=== PATIENT | female | born 1935 | race Caucasian/White ===

== ENCOUNTER 2017-04-25 18:38 | Observation (INO) ==
--- NOTE | 2017-04-25 19:37 | Emergency Department Note ---
Disposition Clinical Impression: Internal derangement of left knee Disposition: Admitted As Inpatient Condition: Fair Referrals: Rufina Ang MD [Primary Care Provider] - Forms: ED Satisfaction Letter Time of Disposition: 22:08 Extremity Problem HPI - General Chief complaint: ED Extremity Problem,Nontraumatic Stated complaint: L knee pain Time Seen by Provider: 04/25/17 18:53 Source: patient Mode of arrival: wheelchair Limitations: no limitations Nursing Notes Reviewed: Yes Vital Signs Reviewed: Yes - History of Present Illness HPI Narrative: 82-year-old status post knee replacement back in December 2016 who says that she developed severe pain in her knee with significant swelling Pt Subjective Complaint: extremity pain Onset (ago): Just WOOLEN TESTER Consistency: constant Injury Location: left Pain Scale: 10 Quality: burning, aching Radiation: none Improves with: nothing Worsens with: weight bearing Associated symptoms: Reports: denies other symptoms - Related Data Home Medications Medication Instructions Recorded Confirmed Aspirin [Adult Low Dose Aspirin EC] 81 mg PO DAILY 04/19/15 04/15/17 Cyanocobalamin (B-12) [Vitamin B12] 1,000 mcg SQ QMONTH 04/19/15 04/15/17 Insulin Glargine [Lantus] 45 units SQ HS 04/19/15 04/15/17 Isosorbide MONOnitrate (24 HR) 60 mg PO DAILY 04/19/15 04/15/17 [Imdur] Omeprazole [PriLOSEC] 20 mg PO DAILY 04/19/15 04/15/17 Ranolazine [Ranexa] 500 mg PO BID 04/19/15 04/15/17 Simvastatin [Zocor] 40 mg PO HS 04/19/15 04/15/17 Spironolactone [Aldactone] 25 mg PO DAILY 04/19/15 04/15/17 Trazodone HCl 150 mg PO HS 04/19/15 04/15/17 carBAMazepine [Tegretol] 400 mg PO HS 04/19/15 04/15/17 glipiZIDE [Glucotrol] 5 mg PO BIDWM 04/19/15 04/15/17 Nitroglycerin 4.1 gm TL AD PRN 01/06/16 04/15/17 Torsemide 50 mg PO DAILY 12/16/16 04/15/17 Valsartan [Diovan] 80 mg PO DAILY 04/15/17 04/15/17 Previous Rx's Medication Instructions Recorded Levothyroxine [Synthroid] 100 mcg PO 0630 #90 tablet 09/09/16 Allergies Allergy/AdvReac Type Severity Reaction Status Date / Time No Known Allergies Allergy Verified 04/15/17 10:57 All systems ED: reviewed and negative except as stated. Constitutional: Denies: fever, chills, weakness, weight change Eyes: Denies: eye pain, eye discharge, vision change ENT ED: Denies: ear pain, throat pain, dental pain, hearing loss, epistaxis, congestion, dysphagia Cardiovascular: Denies: chest pain, palpitations, dyspnea on exertion, edema, syncope Respiratory: Denies: cough, dyspnea, wheezes, hemoptysis, stridor Gastrointestinal: Denies: abdominal pain, nausea, vomiting, diarrhea, constipation, hematemesis, melena, hematochezia Genitourinary: Denies: dysuria, frequency, hematuria, discharge Musculoskeletal: Reports: arthralgia. Denies: back pain, neck pain, myalgia Integumentary: Denies: rash, abrasion, lesions Neurological: Denies: headache, weakness, numbness, paresthesias, confusion, abnormal gait, vertigo Psychiatric: Denies: anxiety, depression, suicidal thoughts, homicidal thoughts , auditory hallucinations, visual hallucinations Endocrine: Denies: fatigue Hematological/Lymphatic: Denies: easy bleeding, easy bruising Allergic/Immunologic: Denies: facial swelling, urticaria Past Medical History - Past Medical History Medical history: Reports: arthritis, cancer, CHF, hyperlipidemia, hypertension, kidney stones, myocardial infarction, pulmonary embolus Surgical history: Reports: appendectomy, cancer surgery, cholecystectomy, coronary bypass (CABG), hysterectomy Psychiatric history: Reports: no psych history - Social History Smoking Status: Never smoker Smokeless Tobacco Status: No Alcohol use: Reports: none Drug use: Reports: none Physical Exam - General Limitations: no limitations General appearance: alert - Head Head exam: atraumatic, normocephalic, normal inspection - Eye Eye exam: Present: normal appearance - ENT ENT exam: normal exam, normal oropharynx, mucous membranes moist - Neck Neck exam: Present: normal inspection, full ROM, trachea midline - Chest Chest inspection: Present: normal inspection, symmetric chest wall rise - Respiratory Respiratory exam: Present: normal lung sounds bilaterally - Cardiovascular Cardiovascular exam: Present: regular rate, normal rhythm, normal heart sounds - Abdominal Exam Abdominal exam: Present: soft, Non-Tender. Absent: tenderness, distention, guarding, rebound, rigidity - Expanded Lower Extremity Exam Knee exam: Present: swelling, erythema Neurovascular/Tendon exam: Absent: motor deficit, sensory deficit, tendon deficit Gait: observed and normal - Back Exam Back exam: Present: normal inspection, full ROM. Absent: tenderness - Neurological Exam Neurological exam: Present: alert, oriented X3 - Psychiatric Psychiatric exam: Present: normal affect, normal mood - Skin Skin exam: Present: warm, dry, intact, normal color Course - Reevaluation(s) Reevaluation #1: 82-year-old with a pop in her knee has marked swelling is unable to ambulate we placed her in a knee immobilizer she could not ambulate. We will admit have a orthopedic surgery see her rule out internal derangement. Time: 22:04 - Consultations Consultation #1: Discussed with Dr. Cueva, he will see the patient. Time: 20:53 Consultation #2: Discussed with , admit Time: 22:04 Vital Signs Temperature 97.7 F 04/25/17 18:42 Pulse Rate 84 04/25/17 18:42 Respiratory Rate 18 04/25/17 18:42 Blood Pressure 191/73 04/25/17 18:42 O2 Sat by Pulse Oximetry 98 04/25/17 18:42 Temperature 97.7 F 04/25/17 18:42 Pulse Rate 84 04/25/17 18:42 Respiratory Rate 18 04/25/17 18:42 Blood Pressure 191/73 04/25/17 18:42 O2 Sat by Pulse Oximetry 98 04/25/17 18:42 Oxygen Delivery Oxygen Delivery Room Air Extremity Problem, Nontraumati - Lab Data Result diagrams: 04/25/17 20:52 04/25/17 20:52 Lab Results 04/25/17 04/25/17 04/25/17 Range/Units 20:52 20:52 20:52 WBC 6.5 (4.3-11.1) K/mcL RBC 3.62 L (3.82-4.97) M/mcL Hgb 11.1 L (11.5-15.4) g/dL Hct 35.0 L (35.3-44.9) % MCV 96.7 (83.0-100.0) fL MCH 30.7 (28.0-33.3) pg MCHC 31.7 (31.6-35.5) g/dL RDW 14.6 H (11.5-14.5) % Plt Count 180 (140-400) K/mcL MPV 9.8 (9.4-12.4) fL Immature Gran % 0.5 (0-4) % Seg Neutrophils % 67.6 % Lymphocytes % 18.5 % Monocytes % 9.2 % Eosinophils % 4.0 % Basophils % 0.2 % Neutrophils # 4.4 (1.6-8.9) K/mcL Lymphocytes # 1.2 (0.6-4.6) K/mcL Monocytes # 0.6 (0.0-1.3) K/mcL Eosinophils # 0.3 (0.0-0.6) K/mcL Basophils # 0.0 (0.0-0.2) K/mcL ESR 107 H (0-15) mm/hr Sodium 138 (136-145) mEq/L Potassium 4.1 (3.5-5.1) mEq/L Chloride 100 (98-107) mEq/L Carbon Dioxide 33 H (23-29) mEq/L BUN 27 H (8-23) mg/dL Creatinine 1.57 H (0.60-1.20) mg/dL Est GFR ( Amer) 38 L (> 60) Est GFR (Non-Af Amer) 32 L (> 60) BUN/Creatinine Ratio 17 (6-26) Glucose 129 H (70-105) mg/dL Calculated Osmolality 293 (280-300) Calcium 9.9 (8.6-10.3) mg/dL
[2017-04-25 21:03] LABS: Basophils % 0.2 %; Eosinophils # 0.3 K/mcL (0.0-0.6); Hemoglobin 11.1 g/dL (11.5-15.4); Immature Granulocytes % 0.5 % (0-4); Lymphocytes # 1.2 K/mcL (0.6-4.6); Lymphocytes % 18.5 %; Mean Corpuscular HGB Conc 31.7 g/dL (31.6-35.5); Mean Corpuscular Hemoglobin 30.7 pg (28.0-33.3); Mean Corpuscular Volume 96.7 fL (83.0-100.0); Mean Platelet Volume 9.8 fL (9.4-12.4); Monocytes # 0.6 K/mcL (0.0-1.3); Monocytes % 9.2 %; Neutrophils # 4.4 K/mcL (1.6-8.9); Platelet Count 180 K/mcL (140-400); Red Blood Count 3.62 M/mcL (3.82-4.97); Red Cell Distribution Width 14.6 % (11.5-14.5); Segmented Neutrophils % 67.6 %
[2017-04-25 21:19] LABS: Calcium 9.9 mg/dL (8.6-10.3); Potassium 4.1 mEq/L (3.5-5.1)
[2017-04-26] MEDS ORDERED: Acetaminophen 325 MG TABLET PO PRN (01:18)
[2017-04-26] MEDS ORDERED: Naloxone 0.4 MG/ML INJ IVP PRN (01:18)
[2017-04-26] MEDS ORDERED: *HR* HYDROcodone/Acet 5/325 mg TABLET PO PRN (01:18)
[2017-04-26] MEDS ORDERED: Dextrose Gel 15 GM/37.5 ML TUBE PO PRN ×2 (01:20)
[2017-04-26] MEDS ORDERED: D5% in Water 1,000 ML IVC PRN (01:20)
[2017-04-26] MEDS ORDERED: *HR* Dextrose 50 % in Water (Syg) 50 ML SYRINGE IVP PRN (01:20)
[2017-04-26] MEDS ORDERED: Nitroglycerin Spray 4.9 GM BOTTLE TL PRN (01:21)
[2017-04-26] MEDS ORDERED: Insulin DETEMIR 100 UNIT/ML X5UNITS SQ SCH (01:30)
--- NOTE | 2017-04-26 02:35 | Internal Med History&Physical ---
Date of Encounter: 04/26/17 Time of Encounter: 01:00 Assessment and Plan (1) Internal derangement of left knee Current visit: Yes Status: Acute Pain management as needed. Orthopedics consult. (2) CKD (chronic kidney disease), stage IV Current visit: No Status: Chronic Cr level is at baseline (3) Diabetes mellitus with neuropathy Current visit: No Status: Chronic Will cont basal and SS insulin. Qualifiers: Diabetes mellitus type: type 2 Diabetes mellitus termite control servicer insulin use: with termite control servicer use Qualified Code(s): E11.40 - Type 2 diabetes mellitus with diabetic neuropathy, unspecified; Z79.4 - intermodal dispatcher (current) use of insulin; Z79.4 - nursing home (current) use of insulin; Z79.4 - nursing home (current) use of insulin; Z79.4 - nursing home (current) use of insulin (4) HTN (hypertension) Current visit: No Status: Chronic Cont home medications. Qualifiers: Hypertension type: essential hypertension Qualified Code(s): I10 - Essential (primary) hypertension (5) History of renal cell cancer Current visit: No Status: Chronic Had surgery many yrs ago. (6) Hypothyroidism (acquired) Current visit: No Status: Chronic Cont home med synthroid (7) CAD (coronary artery disease) Current visit: Yes Status: Acute S/P CABG, stable, no chest pain, cont home medications. Qualifiers: Coronary Disease-Associated Artery/Lesion type: bypass graft [place] vs. transplanted heart: [place] heart Associated angina: without angina Qualified Code(s): I25.810 - Atherosclerosis of coronary artery bypass graft(s) without angina pectoris Internal Medicine - H&P: HPI Chief complaint: Left leg pain. Admitted From: Home Plans for Post Hospital Care: Home History of present illness: Ms. Maurer is a 82 year old female with PMH of DM, HTN, CAD s/p CABG, renal cancer s/p surgery with only one kidney left, present to ER for left leg pain started from today. Pt had TKR in last Dec. Today she found left knee pain, she cannot stand on left leg. Pt denies fever. Denies other symptoms. In ER, XR of left knee unremarkable. Orthopedics was called by ER, considering knee derangement, Pt was admitted for further management by orthopedics. I have discussed CODE STATUS with pt, she clearly told me she will not accept CPR but accept intubation if needed, DNRCCA placed. Past Med Surg Social Fam HX - Past Medical History Medical history: arthritis, cancer, CHF, diabetes, hyperlipidemia, hypertension , kidney stones, myocardial infarction, pulmonary embolus Psychiatric history: no psych history - Past Surgical History Surgical History: appendectomy, cancer surgery, cholecystectomy, coronary bypass (CABG), hysterectomy, knee replacement, orthopedic, other - Social History Smoking Status: Former smoker Smokeless Tobacco Status: No Alcohol use: none Drug use: none - Family History Father Hx Family Cardiac Disorders: Yes (MS) Hx Family Endocrine Disorder: Yes (DM) Hx Family Neurologic Disorders: Yes (CVA) Mother Hx Family Cardiac Disorders: Yes Hx Family Endocrine Disorder: Yes (DM) Hx Family Neurologic Disorders: Yes (CVA) Brother Living Status: Hx Family Cancer: Yes Internal Medicine - H&P: Meds Aspirin [Adult Low Dose Aspirin EC] 81 mg PO DAILY 04/19/15 [History] Cyanocobalamin (B-12) [Vitamin B12] 1,000 mcg SQ QMONTH 04/19/15 [History] Insulin Glargine [Lantus] 45 units SQ HS 04/19/15 [History] Isosorbide MONOnitrate (24 HR) [Imdur] 60 mg PO DAILY 04/19/15 [History] Omeprazole [PriLOSEC] 20 mg PO DAILY 04/19/15 [History] Ranolazine [Ranexa] 500 mg PO BID 04/19/15 [History] Simvastatin [Zocor] 40 mg PO HS 04/19/15 [History] Spironolactone [Aldactone] 25 mg PO DAILY 04/19/15 [History] Trazodone HCl 150 mg PO HS 04/19/15 [History] carBAMazepine [Tegretol] 400 mg PO HS 04/19/15 [History] glipiZIDE [Glucotrol] 5 mg PO BIDWM 04/19/15 [History] Nitroglycerin 4.1 gm TL AD PRN 01/06/16 [History] Levothyroxine [Synthroid] 100 mcg PO 0630 #90 tablet 09/09/16 [Rx] Torsemide 50 mg PO DAILY 12/16/16 [History] Valsartan [Diovan] 80 mg PO DAILY 04/15/17 [History] 3 Allergy/AdvReac Type Severity Reaction Status Date / Time No Known Allergies Allergy Verified 04/15/17 10:57 All Systems PM: A 10-system review of systems was performed and is negative for pertinent findings except as documented above in the HPI. - Constitutional Vitals: Temp Pulse Resp BP Pulse Ox 97.7 F 86 17 142/71 89 04/25/17 23:56 04/25/17 23:56 04/25/17 23:56 04/25/17 23:56 04/25/17 23:56 General appearance: Present: A&O X 3, no acute distress, answers questions appropriately - Head Head exam: Present: atraumatic, normocephalic - Eye Eye exam: Present: PERRL, conjuntiva pink, sclera anicteric Pupils: Present: PERRL - Neck Neck exam general surgery: Present: supple, trachea midline. Absent: lymphadenopathy - Respiratory Respiratory exam: Present: CTAB. Absent: accessory muscle use, rales, rhonchi, wheezes - Cardiovascular Cardiovascular exam: Present: RRR, +S1, +S2. Absent: diastolic murmur, gallop, rubs, systolic murmur - GI/Abdominal GI/Abdominal exam: Present: normal bowel sounds, soft, no peritoneal signs. Absent: distended, tenderness - Extremities Exam Extremities exam: Present: warm, radial pulses palpable and symmetrical. Absent : calf tenderness, cyanotic, pedal edema Additional comments: Left knee ROM limited due to pain, no joint swelling/redness/warmth. - Neurological Exam Neurological exam: Present: CN II-XII intact, oriented X3, no focal deficits. Absent: pronater drift, facial droop, speech deficit - Skin Skin exam: Present: dry, intact Internal Med - H&P Results - Labs CBC & Chem 7: 04/25/17 20:52 04/25/17 20:52
[2017-04-26 04:10] LABS: Basophils % 0.3 %; Eosinophils # 0.3 K/mcL (0.0-0.6); Eosinophils % 4.2 %; Hematocrit 32.8 % (35.3-44.9); Hemoglobin 10.4 g/dL (11.5-15.4); Immature Granulocytes % 0.3 % (0-4); Lymphocytes # 1.2 K/mcL (0.6-4.6); Lymphocytes % 19.2 %; Mean Corpuscular HGB Conc 31.7 g/dL (31.6-35.5); Mean Corpuscular Hemoglobin 30.3 pg (28.0-33.3); Mean Corpuscular Volume 95.6 fL (83.0-100.0); Mean Platelet Volume 10.3 fL (9.4-12.4); Monocytes # 0.6 K/mcL (0.0-1.3); Monocytes % 9.4 %; Neutrophils # 4.3 K/mcL (1.6-8.9); Platelet Count 167 K/mcL (140-400); Red Blood Count 3.43 M/mcL (3.82-4.97); Red Cell Distribution Width 14.8 % (11.5-14.5); Segmented Neutrophils % 66.6 %
[2017-04-26 04:24] LABS: Calcium 9.2 mg/dL (8.6-10.3); Magnesium 1.8 mg/dL (1.6-2.6); Potassium 3.9 mEq/L (3.5-5.1)
[2017-04-26] MEDS ORDERED: *HR* Heparin 5,000 UNIT/ML VIAL SQ SCH (06:00)
--- NOTE | 2017-04-26 06:42 | Orthopedic Consult Note ---
Date of Encounter: 04/26/17 Time of Encounter: 06:41 History of Present Illness HPI: Ms. Maurer is a 82 year old female Patient presented with increased pain in left knee after a pop. Denies any other trauma. Patient is able to do a straight leg raise Minimal swelling Incision well-healed No erythema Motion intact X-rays reviewed and compared with old x-rays slight patella baja otherwise implants well aligned and well fixed. Recommend brace which we will fit her today discharged today weightbearing as tolerated Past Med Surg Social Fam HX - Past Medical History Medical history: arthritis, cancer, CHF, diabetes, hyperlipidemia, hypertension , kidney stones, myocardial infarction, pulmonary embolus Psychiatric history: no psych history - Past Surgical History Surgical History: appendectomy, cancer surgery, cholecystectomy, coronary bypass (CABG), hysterectomy, knee replacement, orthopedic, other - Social History Smoking Status: Former smoker Smokeless Tobacco Status: No Alcohol use: none Drug use: none - Family History Father Hx Family Cardiac Disorders: Yes (RI) Hx Family Endocrine Disorder: Yes (DM) Hx Family Neurologic Disorders: Yes (CVA) Mother Hx Family Cardiac Disorders: Yes Hx Family Endocrine Disorder: Yes (DM) Hx Family Neurologic Disorders: Yes (CVA) Brother Living Status: Hx Family Cancer: Yes Medications and Allergies Aspirin [Adult Low Dose Aspirin EC] 81 mg PO DAILY 04/19/15 [History] Cyanocobalamin (B-12) [Vitamin B12] 1,000 mcg SQ QMONTH 04/19/15 [History] Insulin Glargine [Lantus] 45 units SQ HS 04/19/15 [History] Isosorbide MONOnitrate (24 HR) [Imdur] 60 mg PO DAILY 04/19/15 [History] Omeprazole [PriLOSEC] 20 mg PO DAILY 04/19/15 [History] Ranolazine [Ranexa] 500 mg PO BID 04/19/15 [History] Simvastatin [Zocor] 40 mg PO HS 04/19/15 [History] Spironolactone [Aldactone] 25 mg PO DAILY 04/19/15 [History] Trazodone HCl 150 mg PO HS 04/19/15 [History] carBAMazepine [Tegretol] 400 mg PO HS 04/19/15 [History] glipiZIDE [Glucotrol] 5 mg PO BIDWM 04/19/15 [History] Nitroglycerin 4.1 gm TL AD PRN 01/06/16 [History] Levothyroxine [Synthroid] 100 mcg PO 0630 #90 tablet 09/09/16 [Rx] Torsemide 50 mg PO DAILY 12/16/16 [History] Valsartan [Diovan] 80 mg PO DAILY 04/15/17 [History] 3 Allergy/AdvReac Type Severity Reaction Status Date / Time No Known Allergies Allergy Verified 04/15/17 10:57 All Systems Reviewed: A 10-system review of systems was performed and is negative for pertinent findings except as documented above in the HPI. Physical Exam - Constitutional Vitals: Temp Pulse Resp BP Pulse Ox 97.7 F 86 17 142/71 89 04/25/17 23:56 04/25/17 23:56 04/25/17 23:56 04/25/17 23:56 04/25/17 23:56 Results - Labs Result Diagrams: 04/26/17 03:33 04/26/17 03:33 Labs: Abnormal lab results RBC 3.43 M/mcL (3.82-4.97) L 04/26/17 03:33 Hgb 10.4 g/dL (11.5-15.4) L 04/26/17 03:33 Hct 32.8 % (35.3-44.9) L 04/26/17 03:33 RDW 14.8 % (11.5-14.5) H 04/26/17 03:33 ESR 107 mm/hr (0-15) H 04/25/17 20:52 Carbon Dioxide 30 mEq/L (23-29) H 04/26/17 03:33 Creatinine 1.37 mg/dL (0.60-1.20) H 04/26/17 03:33 Est GFR ( Amer) 45 (> 60) L 04/26/17 03:33 Est GFR (Non-Af Amer) 37 (> 60) L 04/26/17 03:33 Glucose 171 mg/dL (70-105) H 04/26/17 03:33 POC Glucose 113 (58-89) H 04/25/17 23:30 H & H 04/26/17 Range/Units 03:33 Hgb 10.4 L (11.5-15.4) g/dL Hct 32.8 L (35.3-44.9) % All other labs normal. Consult Discharge Plan - Plan Referrals: Rufina Ang MD [Primary Care Provider] -
[2017-04-26] MEDS ORDERED: Spironolactone 25 MG TABLET PO SCH (09:00)
[2017-04-26] MEDS ORDERED: Aspirin Enteric Coated 81 MG Tablet PO SCH (09:00)
[2017-04-26] MEDS ORDERED: Cyanocobalamin (B-12) 1,000 MCG/ML VIAL SQ SCH (09:00)
[2017-04-26] MEDS ORDERED: Ranolazine 500 MG TAB.ER.12H PO SCH (09:00)
[2017-04-26] MEDS ORDERED: Isosorbide MONOnitrate (24 HR) 60 MG TAB.ER.24H PO SCH (09:00)
[2017-04-26] MEDS ORDERED: Valsartan 80 MG TABLET PO SCH (09:00)
[2017-04-26] MEDS ORDERED: Torsemide 20 MG TABLET PO SCH (09:00)
[2017-04-26] MEDS: Insulin LISPRO 300 UNITS/3 ML VIAL SQ SCH ×3 (09:09→17:17)
--- NOTE | 2017-04-26 17:09 | Event Note ---
Date of Encounter: 04/26/17 Time of Encounter: 17:08 1) Internal derangement of left knee Current visit: Yes Status: Acute Evaluated by Ortho who recommended brace for stabilization. Bilateral lower extremity Dopplers pending. Discharge home if negative for DVT. (2) CKD (chronic kidney disease), stage IV Current visit: No Status: Chronic Cr level is at baseline (3) Diabetes mellitus with neuropathy Current visit: No Status: Chronic Will cont basal and SS insulin. Qualifiers: Diabetes mellitus type: type 2 Diabetes mellitus terminal makeup operator insulin use: with chcf use Qualified Code(s): E11.40 - Type 2 diabetes mellitus with diabetic neuropathy, unspecified; Z79.4 - [facility] (current) use of insulin; Z79.4 - computer terminal operator (current) use of insulin; Z79.4 - [facility] (current) use of insulin; Z79.4 - computer terminal operator (current) use of insulin (4) HTN (hypertension) Current visit: No Status: Chronic Cont home medications. Qualifiers: Hypertension type: essential hypertension Qualified Code(s): I10 - Essential (primary) hypertension (5) History of renal cell cancer Current visit: No Status: Chronic Had surgery many yrs ago. (6) Hypothyroidism (acquired) Current visit: No Status: Chronic Cont home med synthroid (7) CAD (coronary artery disease) Current visit: Yes Status: Acute S/P CABG, stable, no chest pain, cont home medications. Qualifiers: Coronary Disease-Associated Artery/Lesion type: bypass graft [place] vs. transplanted heart: [place] heart Associated angina: without angina Qualified Code(s): I25.810 - Atherosclerosis of coronary artery bypass graft(s) without angina pectoris
[2017-04-26 17:13] VITALS: BP 138/76
[2017-04-26] MEDS ORDERED: Insulin LISPRO 300 UNITS/3 ML VIAL SQ SCH (21:00)
[2017-04-26] MEDS ORDERED: carBAMazepine 200 MG TABLET PO SCH (21:00)
[2017-04-26] MEDS ORDERED: traZODone 50 MG TABLET PO SCH (21:00)
--- NOTE | 2017-04-29 07:44 | Discharge Summary ---
Date of Encounter: 04/26/17 Time of Encounter: 19:00 - Discharge Diagnosis (1) Internal derangement of left knee Priority: Primary Status: Acute Comments: s/p left TKR 12/2016. Now with severe left leg pain. Left knee x-ray non-acute. Bilateral lower extremity dopplers negative for DVT. Possible derangement of left knee. Evaluated by Ortho who noted implants well aligned and well fixed. She was fitted with left knee brace and discharged home with outpatient follow- up (2) CAD (coronary artery disease) Priority: Secondary Status: Chronic Comments: S/P CABG, stable, no chest pain, cont home medications. Qualifiers: Coronary Disease-Associated Artery/Lesion type: bypass graft [place] vs. transplanted heart: [place] heart Associated angina: without angina Qualified Code(s): I25.810 - Atherosclerosis of coronary artery bypass graft(s) without angina pectoris (3) CKD (chronic kidney disease), stage IV Priority: Secondary Status: Chronic Comments: per hx. Renal function at baseline (4) History of renal cell cancer Priority: Secondary Status: Chronic Comments: per hx. S/p remote surgery (5) HTN (hypertension) Priority: Secondary Status: Chronic Comments: per hx. BP controlled. Cont home BP medications Qualifiers: Hypertension type: essential hypertension Qualified Code(s): I10 - Essential (primary) hypertension (6) Hypothyroidism (acquired) Priority: Secondary Status: Chronic Comments: per hx. Cont home levothyroxine Hospital course: See assessment and plan for hospital course Discharge discussed with: patient - Time Spent with Patient Total time spent providing and/or coordinating discharge services: Less than 30 minutes - Discharge Medications Home Medications: Aspirin [Adult Low Dose Aspirin EC] 81 mg PO DAILY 04/19/15 [History] Cyanocobalamin (B-12) [Vitamin B12] 1,000 mcg SQ QMONTH 04/19/15 [History] Insulin Glargine [Lantus] 60 units SQ HS 04/19/15 [History] Isosorbide MONOnitrate (24 HR) [Imdur] 60 mg PO DAILY 04/19/15 [History] Omeprazole [PriLOSEC] 20 mg PO DAILY 04/19/15 [History] Ranolazine [Ranexa] 500 mg PO BID 04/19/15 [History] Simvastatin [Zocor] 40 mg PO HS 04/19/15 [History] Spironolactone [Aldactone] 25 mg PO DAILY 04/19/15 [History] Trazodone HCl 150 mg PO HS 04/19/15 [History] carBAMazepine [Tegretol] 400 mg PO HS 04/19/15 [History] glipiZIDE [Glucotrol] 5 mg PO BIDWM 04/19/15 [History] Nitroglycerin 4.1 gm TL AD PRN 01/06/16 [History] Levothyroxine [Synthroid] 100 mcg PO 0630 #90 tablet 09/09/16 [Rx] Torsemide 50 mg PO DAILY 12/16/16 [History] Valsartan [Diovan] 80 mg PO DAILY 04/15/17 [History] Allergies/Adverse Reactions: 3 Allergy/AdvReac Type Severity Reaction Status Date / Time No Known Allergies Allergy Verified 04/15/17 10:57 Date of admission: 04/25/17 22:29 Primary care physician: Rufina Ang MD Discharging clinician: Naida Coon Anticipated date of discharge: 04/26/17 - Constitutional Vitals: Temp Pulse Resp BP Pulse Ox 98.1 F 84 16 138/76 95 04/26/17 14:00 04/26/17 14:00 04/26/17 14:00 04/26/17 14:00 04/26/17 14:00 General appearance: Present: A&O X 3, no acute distress, answers questions appropriately - Head Head exam: Present: atraumatic, normocephalic - Eye Eye exam: Present: PERRL, conjuntiva pink, sclera anicteric Pupils: Present: PERRL - Neck Neck exam general surgery: Present: supple, trachea midline. Absent: lymphadenopathy - Respiratory Respiratory exam: Present: CTAB. Absent: accessory muscle use, rales, rhonchi, wheezes - Cardiovascular Cardiovascular exam: Present: RRR, +S1, +S2. Absent: diastolic murmur, gallop, rubs, systolic murmur - GI/Abdominal GI/Abdominal exam: Present: normal bowel sounds, soft, no peritoneal signs. Absent: distended, tenderness - Extremities Exam Extremities exam: Present: warm, radial pulses palpable and symmetrical. Absent : calf tenderness, cyanotic, pedal edema - Neurological Exam Neurological exam: Present: CN II-XII intact, oriented X3, no focal deficits. Absent: pronater drift, facial droop, speech deficit - Skin Skin exam: Present: dry, intact - Patient Status Disposition: Home, Self-Care Condition: Fair - Discharge Instructions Follow Up With: Rufina Ang MD [Primary Care Provider] - (MAKE AN APPOINTMENT 1-2 WEEKS ) Additional Instructions: WEAR BRACE TO LEFT KNEE AT ALL TIMES. WEIGHT BEARING TOLERATED. USE WALKER FOR AMBULATION. CALL 911, THE DOCTOR'S OFFICE, OR GO TO THE NEAREST EMERGENCY ROOM IF SYMPTOMS WORSEN OR RETURN WELL WITH ANY CONCERNS. - Diet and Activity Activity: increase activity as tolerated Diet: advance to your usual diet
== END 2017-04-26 18:44 | disposition home or self-care (01) ==
LOC: 3NENU 18:38 → EMEROO 18:38 → 3NENU 22:47
PROVIDERS: ADMIT Internal Medicine; ATTEND Hospitalist

== ENCOUNTER 2018-11-24 07:21 | Inpatient (IN) ==
[~2018-11-24 07:21] MED LIST: Heparin 1,000 UNITS/500 mL 500 ML ONE
--- NOTE | 2018-11-24 07:38 | History & Physical Report ---
Date of Encounter: 11/24/18 Time of Encounter: 07:35 24 Hour HP Update - Instructions Instructions: If the History and Physical is less than 30 days old and was completed prior to A.M. admission and or procedure and has NOT been updated on calendar day of procedure please complete this update prior to performing procedure. - Update Patient reports changes in Medical Condition: No Changes in examination, assessment, or condition: No Changes in Medication: No Preop tests/diagnostics Reviewed: Yes Surgery Remains Indicated: Yes Consent for Planned Operative Procedure(s) Verified: Yes - Pre-Operative Checklist Preoperative Checklist Indicated: Yes Prophylactic Antibiotic Ordered: Yes (vancomycin due to MRSA risk) Home Medications Include Beta Jluis: No Beta Jluis Taken Today (Day of Surgery): No Beta Jluis Taken Yesterday (Day Prior to Surgery): No Is VTE Prophylaxis Indicated?: Yes
--- NOTE | 2018-11-24 08:09 | Anesthesia Evaluation PreOp ---
Date of Encounter: 11/24/18 Time of Encounter: 08:08 - Past History Planned Operation: left fem-pop BPG Cardiac History: PR, HTN, Hyperlipidemia, Cardiac Surgery (CABG 2001 after PR, 3 vessel), Other (CAD, PAD) Pulmonary History: Former smoker (quit 2001), Other (hx tonsillar cancer 2012, S/P tonsillectomy and XRT) Other Medical History: Renal (CKD 4, renal cell cancer), Diabetes Type II, Thyroid, Other (uterine and throat cancer) Anesthesia History: No Prior Anesthetic Complications, Past Anesthesia (JILLIAN, nephrectomy, ankle sx, cervical fusion, left tka, throat sx (tonsils)) Alcohol Use: none Drug use: none Medications and Allergies Cyanocobalamin (B-12) [Vitamin B12] 1,000 mcg SQ QMONTH 04/19/15 [History] GlipiZIDE [Glucotrol] 5 mg PO BIDWM 04/19/15 [History] Insulin Glargine [Lantus] 30 units SQ HS 04/19/15 [History] Isosorbide MONOnitrate (24 HR) [Imdur] 60 mg PO DAILY 04/19/15 [History] Omeprazole [PriLOSEC] 20 mg PO DAILY 04/19/15 [History] Ranolazine [Ranexa] 500 mg PO BID 04/19/15 [History] Spironolactone [Aldactone] 25 mg PO DAILY 04/19/15 [History] Trazodone HCl 150 mg PO HS 04/19/15 [History] Nitroglycerin 4.1 gm TL AD PRN 01/06/16 [History] HydrOXYzine [Atarax] 10 mg PO QID 07/01/17 [History] Levothyroxine [Synthroid] 100 mcg PO 0630 07/01/17 [History] diazePAM [Valium] 5 mg PO DAILY 07/01/17 [History] Allopurinol [Zyloprim] 300 mg PO DAILY 10/12/18 [History] Amlodipine Besylate 5 mg PO DAILY 10/12/18 [History] Atorvastatin Calcium [Lipitor] 20 mg PO HS 10/12/18 [History] Cholecalciferol (Vitamin D3) [Vitamin D3] 500 unit PO DAILY 10/12/18 [History] Docusate Sodium [Dulcolax Stool Softener] 100 mg PO DAILY PRN 10/12/18 [History] GlipiZIDE [Glipizide Xl] 5 mg PO BID 10/12/18 [History] Multivitamin with Folic Acid [Gnp One Daily Essential Tablet] 400 mcg PO DAILY 10/12/18 [History] Pyridoxine HCl [Vitamin B-6] 50 mg PO DAILY 10/12/18 [History] Torsemide 100 mg PO DAILY 10/12/18 [History] Valsartan [Diovan] 40 mg PO DAILY 10/12/18 [History] carBAMazepine [Tegretol] 200 mg PO BID 10/12/18 [History] Allergy/AdvReac Type Severity Reaction Status Date / Time No Known Allergies Allergy Verified 06/29/17 15:56 - Meds/Allergy Pre-op Review Medications Reviewed: Yes Allergies Reviewed: Yes Beta Blockers on Current Med List: No Anesthesia Results - Labs Selected Entries 11/24/18 07:55 Temperature 97.8 F Pulse Rate 78 Respiratory Rate 18 Blood Pressure 138/66 O2 Sat by Pulse Oximetry 97 Laboratory Tests 11/16/18 11/16/18 11/16/18 11:23 11:23 11:23 Hgb 11.9 Hct 37.3 Plt Count 169 PT 11.4 INR 1.0 APTT 31.3 Sodium 136 Potassium 4.1 BUN 39 H Creatinine 2.18 H - Imaging Additional studies: studies at outside institution per Dr Heath reports show negative stress test for ischemia and EF>70% Anesthesia Exam Selected Entries 11/24/18 08:19 Temperature 97.8 F Pulse Rate 78 Respiratory Rate 18 Blood Pressure 138/66 O2 Sat by Pulse Oximetry 97 Weight: 87kg NPO (# of Hours): 8 - HEENT Pupil (Motor): EOMI Mallampati: II Teeth: Edentulous Oral Opening: Greater than 3 - JOURNEYMAN MOLDER LOC: Oriented JOURNEYMAN MOLDER Motor: Normal RUE, Normal LUE, Normal RLE, Normal LLE, Normal Face JOURNEYMAN MOLDER Sensory: Normal: RUE, LUE, RLE, LLE, Face - Cardiac Rhythm: Regular Murmur: None - Pulmonary Breath Sounds: bilateral Clear Respiratory Effort: Symmetrical - Additional Findings limited ROM c-spine, Anesthesia Assess/Plan ASA Score: 4 Level of consciousness: Cooperative, Oriented Anesthetic Plan: General Monitoring Plan: Standard Monitors, A-Line Recovery Plan: PACU (agrees to GA, hira and blood if needed)
[2018-11-24] MEDS ORDERED: CeFAZolin Syr 2,000MG/20 ML 2,000 MG/20 ML SYRINGE IVPB ONE (08:12)
[2018-11-24] MEDS ORDERED: *HR* FentaNYL (PF) 100 MCG/2 ML VIAL ONE (08:12)
[2018-11-24] MEDS ORDERED: *HR* Propofol 200 MG/20 ML VIAL IVP ONE (08:12)
[2018-11-24] MEDS ORDERED: Albuterol 2.5 MG/3 ML NEBULIZER IH ONE (08:12)
[2018-11-24] MEDS ORDERED: Lidocaine -MPF 2% 2 ML VIAL ONE (08:14)
[2018-11-24] MEDS ORDERED: *HR* Succinylcholine 200 MG/10 ML VIAL IVP ONE (08:14)
[2018-11-24] MEDS ORDERED: Lidocaine HCL 4 ML Topical Solution (Laryng-O-Jet Kit Sterile Pak) TP ONE (08:14)
[2018-11-24] MEDS ORDERED: Ringers Solution, Lactated 1,000 ML IVC SCH ×2 (08:15→08:30)
[2018-11-24] MEDS ORDERED: Acetaminophen IV 1,000 MG/100 ML INFUS..BTL IVPB ONE (08:29)
[2018-11-24] MEDS ORDERED: *HR* HYDROmorphone (PF) 1 MG/ML SYRINGE IVP PRN (08:29)
[2018-11-24] MEDS ORDERED: *HR* Promethazine 25 MG/ML VIAL IVP PRN ×2 (08:29→14:40)
[2018-11-24] MEDS ORDERED: *HR* OxyCODONE Immed Rel 5 MG TABLET PO PRN ×2 (08:29→14:40)
[2018-11-24] MEDS ORDERED: Heparin 1,000 UNITS/500 mL 500 ML ONE ×2 (08:32→08:43)
[2018-11-24] MEDS ORDERED: *HR* Midazolam HCl 2 MG/2 ML VIAL ONE (08:40)
[2018-11-24] MEDS ORDERED: Acetaminophen IV 1,000 MG/100 ML INFUS..BTL ONE (08:47)
[2018-11-24] MEDS ORDERED: Vancomycin 1,000 MG, Sodium Chloride IRRigation 1,000 ML IR ONE (08:55)
[2018-11-24] MEDS ORDERED: Lidocaine -MPF 4% 5 ML AMPUL ONE (09:14)
[2018-11-24] MEDS ORDERED: EPHEDrine 50 MG/ML VIAL ONE (09:32)
[2018-11-24] MEDS ORDERED: *HR* Phenylephrine 10 MG/ML VIAL ONE (09:32)
[2018-11-24] MEDS ORDERED: Ondansetron 4 MG/2 ML VIAL ONE (09:41)
[2018-11-24] MEDS ORDERED: Dexamethasone 4 MG/ML VIAL ONE (09:41)
[2018-11-24] MEDS ORDERED: *HR* Rocuronium Bromide 50 MG/5 ML VIAL ONE ×2 (09:58→11:44)
[2018-11-24] MEDS ORDERED: Calcium Gluconate 1,000 MG/10 ML VIAL ONE (10:48)
[2018-11-24] MEDS ORDERED: *HR* Heparin 5,000 UNIT/ML VIAL ONE (10:58)
[2018-11-24] MEDS ORDERED: Protamine Sulfate 50 MG/5 ML VIAL IVP ONE (12:08)
--- NOTE | 2018-11-24 13:34 | Operative Note ---
Date of procedure: 11/24/18 Pre-op diagnosis: Peripheral vascular disease with disabling claudication Post-op diagnosis: same Procedure: 1. Reoperative left common femoral to below-knee popliteal artery bypass graft with 6 mm ring reinforced PTFE Distaflo mini-cuff graft. 2. Left common femoral endarterectomy. 3. Left popliteal endarterectomy. Complications: None Anesthesia: MAC, local Surgeon: Willian Heath Was there an digital assistant present: Yes Senior Software Quality Analyst: Miguel A De La Cruz Estimated blood loss (cc): 100 Specimen: Left lower extremity thrombus and plaque Condition: stable Disposition: PACU Procedure in Detail: Indications: The patient is an 83-year-old female with a history of peripheral vascular disease, hypertension, diabetes, coronary artery disease and hyperlipidemia presenting undergone bilateral femoral to popliteal artery bypass grafts. She presented to clinic with severe disabling claudication was found have a graft occlusion on the left. Revascularization was recommended to alleviate her symptoms reduce her risk of limb loss. Procedure: The patient was identified in the preoperative area. The risks, benefits, and alternatives of the procedure were discussed. All questions were answered. The patient was taken to the operating room and placed in supine position on the operating room table. After the induction of general endotracheal anesthesia, he was cleaned and draped in normal sterile fashion. An incision was made through her previous longitudinal left groin scar sharply. Hemostasis was obtained with electrocautery. Through a process of blunt, sharp, and electrocautery dissection, the common, deep and superficial femoral arteries as well as the proximal anastomosis of the prior bypass graft were dissected circumferentially and surrounded with vessel loops. An incision was made through the previous scar in her left medial calf sharply. Hemostasis was obtained with electrocautery. Through a process of blunt, sharp, and electrocautery dissection, the left below-knee popliteal artery, proximal anterior tibial artery and proximal tibial peroneal trunk artery as well as the distal anastomosis of her previous bypass graft was dissected proximally and distally and surrounded with vessel loops. A graft was tunneled between the popliteal and femoral incisions. The patient received 5000 units of heparin intravenously. After waiting adequate time for the heparin to circulate, the popliteal vessels were occluded and a longitudinal arteriotomy was made in the popliteal artery below the previous anastomosis. Dense severely occlusive plaque was identified. Using a dental freer, an endarterectomy is performed. The distal endpoint was inspected and no elevated flaps was noted. The distal end of the graft was sutured in place with a running 6-0 Prolene. The sutures were not tied.. Heparinized saline was infused into the lumen. Tension was applied to the femoral vessel loops. An arteriotomy was made in the occluded previous bypass graft and extended into the left common femoral artery. Significant thrombus and intimal hyperplasia was encountered within the graft and at the anastomosis with the common femoral artery. Using a dental freer the thrombus and plaque were removed and sent to pathology. No elevated flaps were noted in the lumen. The new bypass graft was cut to fit the arteriotomy. The graft was anastamosed with a running 6-0 Prolene. The vessels were flushed through the graft and heparin was infused into the lumen. The graft was clamped with an atraumatic clamp. Thrombin and gelfoam were used at the proximal anastamosis. The distal arterial anastomosis suture line was completed. Prior to completing the closure, the popliteal vessels were flushed and reoccluded. Heparinized saline was infused into the lumen. The anastamosis was tied and then flow was restored. Polyphasic signals were noted distal to the distal anastomosis as well as at the posterior tibial artery. Wounds were irrigated with antibiotic-containing saline. Thrombin and gelfoam were used to aid in hemostasis. Platelet rich and platelet poor plasma were infused into the wounds. Meticulous hemostasis was obtained throughout the wound with electrocautery. Wounds were reapproximated with layers of 2-0 and 3-0 Vicryl. Skin was reapproximated with 3-0 Monocryl. Sterile dressing was applied. The patient was extubated and taken to recovery room in stable condition.
--- NOTE | 2018-11-24 14:15 | Anesthesia Evaluation Post Op ---
Date of Encounter: 11/24/18 Time of Encounter: 14:14 - Vital Signs Vital Signs: Selected Entries 11/24/18 14:01 Temperature 97.8 F Pulse Rate 67 Respiratory Rate 12 Blood Pressure 131/59 O2 Sat by Pulse Oximetry 100 - Lungs Lungs: Clear Ascult./Percussion - Airway Airway: Non-obstructed - Cardiovascular Regular Rate - Mental Status Mental Status: Alert & Oriented, Answers Appropriately - Pain Pain Scale: 0 Pain Scale used: Numeric (1 - 10) - Nausea Vomiting Nausea Vomiting: Not Present - Hydration Hydration: Ice chips, [place] catheter - Discharge PostOp Status: Transfer Patient to floor
[2018-11-24] MEDS ORDERED: *HR* Labetalol 20 MG/4 ML SYRINGE IVP PRN (14:40)
[2018-11-24] MEDS ORDERED: Cyanocobalamin (B-12) 1,000 MCG/ML VIAL SQ SCH (14:40)
[2018-11-24] MEDS ORDERED: D5% in Water 1,000 ML IVC PRN (14:40)
[2018-11-24] MEDS ORDERED: Acetaminophen 325 MG TABLET PO PRN (14:40)
[2018-11-24] MEDS ORDERED: Dextrose Gel 15 GM/37.5 ML TUBE PO PRN ×2 (14:40)
[2018-11-24] MEDS ORDERED: Naloxone 0.4 MG/ML INJ IVP PRN (14:40)
[2018-11-24] MEDS ORDERED: *HR* Dextrose 50 % in Water (Syg) 50 ML SYRINGE IVP PRN (14:40)
[2018-11-24] MEDS ORDERED: *HR* HYDROcodone/Acet 5/325 mg TABLET PO PRN (14:40)
[2018-11-24] MEDS ORDERED: 0.9 % Sodium Chloride 1,000 ML IVC SCH (14:40)
[2018-11-24] MEDS ORDERED: Nitroglycerin Spray 4.9 GM BOTTLE SL PRN (14:40)
--- NOTE | 2018-11-24 14:42 | Operative Note ---
Date of procedure: 11/24/18 Pre-op diagnosis: Lifestyle limiting left lower extremity claudication Post-op diagnosis: same Procedure: Redo left femoral to below the knee popliteal artery bypass graft with 6 mm PTFE Distaflo Left below-knee popliteal artery endarterectomy Left common femoral artery endarterectomy Complications: None Anesthesia: GETA Surgeon: Willian Heath Co-Surgeon: Miguel A De La Cruz Was there an tmd teacher assistant present: No Estimated blood loss (cc): 100 Specimen: Left lower extremity thrombus and atherosclerotic plaque Condition: stable Disposition: PACU Procedure in Detail: History This patient is an 83-year-old white female with lifestyle limiting claudication. She has had multiple interventions for the left lower extremity. She is status post a previous femoral to below-knee popliteal artery bypass graft with synthetic material. She is status post multiple stents placed in the left superficial femoral artery. Both of these interventions have thrombosed. Patient is also status post left total knee replacement. An Heron Ramm was performed which demonstrated the occlusion and the lesion was not amenable to endovascular therapy and so the patient now comes for direct bypass grafting again. Procedure After informed consent was obtained the patient was taken to the operating room. General endotracheal anesthesia was established. The left lower extremity was sterilely prepped and draped. A timeout protocol was observed. A 2 team surgical approach was used for this patient. This was performed due to the patient's multiple comorbidities. Also to allow for complex decision-making in to minimize complications associated with prolonged anesthesia and blood loss. The left groin and left below the knee popliteal areas were explored through previous surgical incisions. This of course led to significant encounter with scar tissue in inflammatory changes. After tedious dissection both locations the [place]ongo vessel as well as the synthetic graft were identified and controlled. A subsartorial tunnel was then created. 5000 units of heparin were administered intravenously. After 3 minute delay the old knee popliteal artery was clamped and then opened with 11 blade knife and Sims scissors. This revealed a significant amount of thick atherosclerotic material. In order to secure an appropriate lumen this required a formal endarterectomy. This was performed with a septal dissector. The dissection was carried proximally to the level of the previous femoral popliteal bypass graft as well as distally to the level of the bifurcation into the anterior tibial and tibial peroneal trunk. Backbleeding was established. The area was copiously irrigated with heparinized saline. In a similar fashion the left groin area was exposed. The arterial exposure was begun by opening the proximal portion of the graft and continuing the arteriotomy onto the [place] common femoral artery. Plaque and thrombus was encountered and then this was removed using a [place] elevator. This area was also flushed with a copious amount of heparinized saline. The bypass graft wasn't performed. The distal anastomosis was initiated first in order to secure an appropriate length. The heel of the graft was sewn into pos ition and the graft was then gently stretched to be appropriate for no tension anastomosis both proximally and distally. The proximal anastomosis and distal anastomosis were then carried out simultaneously. After appropriate backbleeding and flushing the graft was opened. Pulsatile flow was then achieved into the below the knee popliteal artery and tibial vessels. Doppler signals identified over the dorsalis pedis artery. The wounds were then irrigated and hemostasis achieved. The wounds were closed in layers using absorbable suture. Dry sterile dressings were applied. There were no intraoperative complications. The patient tolerated the procedure well. She was taken from the operating room to the recovery room in stable condition.
[2018-11-24] MEDS: Insulin LISPRO 300 UNITS/3 ML VIAL SQ SCH (16:54)
[2018-11-24] MEDS: *HR* Metoprolol 5 MG/5 ML VIAL IVP SCH ×2 (16:57→23:59)
[2018-11-24] MEDS ORDERED: Cholecalciferol (D-3) 1,000 UNIT (25MCG) TABLET PO SCH (18:00)
[2018-11-24] MEDS ORDERED: Torsemide 20 MG TABLET PO SCH (18:00)
[2018-11-24] MEDS ORDERED: Folic Acid 1 MG TABLET PO SCH (18:00)
[2018-11-24] MEDS ORDERED: Pyridoxine (B-6) 50 MG TABLET PO SCH (18:00)
[2018-11-24] MEDS ORDERED: Isosorbide MONOnitrate (24 HR) 60 MG TAB.ER.24H PO SCH (18:00)
[2018-11-24] MEDS ORDERED: Insulin LISPRO 300 UNITS/3 ML VIAL SQ SCH (21:00)
[2018-11-24] MEDS ORDERED: carBAMazepine 200 MG TABLET PO SCH (21:00)
[2018-11-24] MEDS ORDERED: traZODone 50 MG TABLET PO SCH (21:00)
[2018-11-24] MEDS: Ranolazine 500 MG TAB.ER.12H PO SCH (21:24)
[2018-11-25 03:38] LABS: Basophils % 0.2 %; Eosinophils # 0.1 K/mcL (0.0-0.6); Eosinophils % 1.5 %; Hematocrit 27.9 % (35.3-44.9); Hemoglobin 8.8 g/dL (11.5-15.4); Immature Granulocytes % 0.4 % (0-4); Lymphocytes # 1.1 K/mcL (0.6-4.6); Lymphocytes % 13.4 %; Mean Corpuscular HGB Conc 31.5 g/dL (31.6-35.5); Mean Corpuscular Hemoglobin 33.2 pg (28.0-33.3); Mean Corpuscular Volume 105.3 fL (83.0-100.0); Mean Platelet Volume 11.2 fL (9.4-12.4); Monocytes # 0.8 K/mcL (0.0-1.3); Monocytes % 10.1 %; Neutrophils # 6.1 K/mcL (1.6-8.9); Platelet Count 132 K/mcL (140-400); Red Blood Count 2.65 M/mcL (3.82-4.97); Red Cell Distribution Width 14.1 % (11.5-14.5); Segmented Neutrophils % 74.4 %; White Blood Count 8.2 K/mcL (4.3-11.1)
[2018-11-25 03:57] LABS: Calcium 8.3 mg/dL (8.6-10.3); Potassium 4.3 mEq/L (3.5-5.1)
[2018-11-25] MEDS: *HR* Metoprolol 5 MG/5 ML VIAL IVP SCH (05:00)
[2018-11-25] MEDS ORDERED: *HR* Heparin 5,000 UNIT/ML VIAL SQ SCH ×2 (06:00)
--- NOTE | 2018-11-25 06:46 | Discharge Summary ---
Orders not resulted at time of discharge: Pending orders 11/24/18 12:56 Surgical Pathology [PTH] Routine Date of Encounter: 11/25/18 Time of Encounter: 07:05 - Discharge Diagnosis (1) Atheroscler nonbiologic bypass graft left leg w/intermit claudication Priority: Primary Status: Chronic Comments: The patient is postoperative day #1 after reoperative left femoral to popliteal artery bypass graft. She is hemodynamically stable. She is tolerating a diet. She is able to ablate. Her compartments are soft. She has polyphasic pedal signals. She will be discharged today. (2) HTN (hypertension) Priority: Secondary Status: Chronic Qualifiers: Hypertension type: essential hypertension Qualified Code(s): I10 - Essential (primary) hypertension (3) CKD (chronic kidney disease), stage IV Priority: Secondary Status: Chronic (4) CAD (coronary artery disease) Priority: Secondary Status: Chronic Qualifiers: Coronary Disease-Associated Artery/Lesion type: [place] artery [place] vs. transplanted heart: [place] heart Associated angina: without angina Qualified Code(s): I25.10 - Atherosclerotic heart disease of [place] coronary artery without angina pectoris (5) Chronic disease anemia Priority: Secondary Status: Chronic Comments: The patient has chronic anemia with acute expected postoperative blood loss anemia. She is hemodynamically stable without evidence of ongoing blood loss. - Hospital Course Hospital course: Ms. Maurer is a 83 year old female with history of peripheral vascular disease with disabling claudication, hypertension, chronic anemia and chronic kidney disease who presented to clinic with an occluded left femoropopliteal bypass graft and severe disabling claudication of left lower extremity. She is admitted to the epidural she underwent a reoperative left femoral to below-knee popliteal artery bypass graft. She required a femoral popliteal endarterectomy as well. On postoperative day #1 she was hemodynamically stable without evidence of ongoing blood loss. She was able to ambulate and her pain was well- controlled. She was discharged on postoperative day #1 without complication. - Time Spent with Patient Total time spent providing and/or coordinating discharge services: - Discharge Medications Prescriptions: New OxyCODONE/APAP 5/325 [Percocet 5/325 MG] 1 each PO Q6HR PRN 5 Days #20 tablet PRN Reason: Postoperative pain Continued Cyanocobalamin (B-12) [Vitamin B12] 1,000 mcg SQ QMONTH Ranolazine [Ranexa] 500 mg PO BID GlipiZIDE [Glucotrol] 5 mg PO BIDWM Spironolactone [Aldactone] 25 mg PO DAILY Isosorbide MONOnitrate (24 HR) [Imdur] 60 mg PO QPM Trazodone HCl 150 mg PO HS Omeprazole [PriLOSEC] 20 mg PO QAM Insulin Glargine [Lantus] 30 units SQ HS Nitroglycerin 4.1 gm TL AD PRN PRN Reason: chest pain Levothyroxine [Synthroid] 100 mcg PO 0630 HydrOXYzine [Atarax] 5 mg PO Q8H PRN PRN Reason: Anxiety Allopurinol [Zyloprim] 300 mg PO DAILY Amlodipine Besylate 5 mg PO DAILY carBAMazepine [Tegretol] 400 mg PO HS Docusate Sodium [Dulcolax Stool Softener] 100 mg PO QPM PRN PRN Reason: Constipation Torsemide 100 mg PO QPM Pyridoxine HCl [Vitamin B-6] 50 mg PO QPM Cholecalciferol (Vitamin D3) [Dialyvite Vitamin D] 5,000 units PO QPM Clopidogrel [Plavix] 75 mg PO DAILY Folic Acid 1 mg PO QPM Losartan Potassium 100 mg PO DAILY Montelukast [Singulair] 10 mg PO DAILY Simvastatin [Zocor] 40 mg PO HS Aspirin [Lo-Dose Aspirin EC] 81 mg PO QAM Home Medications: Cyanocobalamin (B-12) [Vitamin B12] 1,000 mcg SQ QMONTH 04/19/15 [History] GlipiZIDE [Glucotrol] 5 mg PO BIDWM 04/19/15 [History] Insulin Glargine [Lantus] 30 units SQ HS 04/19/15 [History] Isosorbide MONOnitrate (24 HR) [Imdur] 60 mg PO QPM 04/19/15 [History] Omeprazole [PriLOSEC] 20 mg PO QAM 04/19/15 [History] Ranolazine [Ranexa] 500 mg PO BID 04/19/15 [History] Spironolactone [Aldactone] 25 mg PO DAILY 04/19/15 [History] Trazodone HCl 150 mg PO HS 04/19/15 [History] Nitroglycerin 4.1 gm TL AD PRN 01/06/16 [History] HydrOXYzine [Atarax] 5 mg PO Q8H PRN 07/01/17 [History] Levothyroxine [Synthroid] 100 mcg PO 0630 07/01/17 [History] Allopurinol [Zyloprim] 300 mg PO DAILY 10/12/18 [History] Amlodipine Besylate 5 mg PO DAILY 10/12/18 [History] Docusate Sodium [Dulcolax Stool Softener] 100 mg PO QPM PRN 10/12/18 [History] Pyridoxine HCl [Vitamin B-6] 50 mg PO QPM 10/12/18 [History] Torsemide 100 mg PO QPM 10/12/18 [History] carBAMazepine [Tegretol] 400 mg PO HS 10/12/18 [History] Aspirin [Lo-Dose Aspirin EC] 81 mg PO QAM 11/24/18 [History] Cholecalciferol (Vitamin D3) [Dialyvite Vitamin D] 5,000 units PO QPM 11/24/18 [History] Clopidogrel [Plavix] 75 mg PO DAILY 11/24/18 [History] Folic Acid 1 mg PO QPM 11/24/18 [History] Losartan Potassium 100 mg PO DAILY 11/24/18 [History] Montelukast [Singulair] 10 mg PO DAILY 11/24/18 [History] Simvastatin [Zocor] 40 mg PO HS 11/24/18 [History] OxyCODONE/APAP 5/325 [Percocet 5/325 MG] 1 each PO Q6HR PRN 5 Days #20 tablet 11/25/18 [Rx] Allergies/Adverse Reactions: Allergy/AdvReac Type Severity Reaction Status Date / Time No Known Allergies Allergy Verified 11/24/18 08:51 Date of admission: 11/24/18 14:12 Primary care physician: Garret Robb DO Procedure(s) Performed: Left femoral to popliteal artery bypass graft, left femoral endarterectomy, left popliteal endarterectomy. Discharging clinician: Willian Heath Anticipated date of discharge: 11/25/18 Exam Vital Signs, Last 4 Hours Temp Pulse Resp BP Pulse Ox 11/25/18 03:46 98.0 F 69 17 109/48 100 General: Present: Conversant, No Apparent Distress HEENT: Present: Pupils equal Cardiac: Present: Reg Rate and Rhythm Lungs: Present: Normal Breath Sounds Neuro: Present: Alert and responsive, No focal deficits noted Abdomen: Present: Soft, Non-tender Vascular: Present: Normal capillary refill, Pulse, normal (Pedal signals polyphasic), Surgical incisions (Incisions clean, dry and intact without erythema or drainage, no hematoma), Other (Compartments soft). Absent: Cyanosis, Edema Skin: Present: No rashes noted on visualized skin - Patient Status Disposition: Home, Self-Care Condition: Good Functional capacity at discharge: independent ambulation Overall status at discharge: patient is back to baseline - Discharge Instructions Instructions: Peripheral Vascular Disorders (DC), Chronic Hypertension (DC), Anemia (GEN) Follow Up With: Garret Robb DO [Primary Care Provider] - 12/01/18 2:20 pm Willian Heath MD [Partnered Physician] - 12/27/18 3:30 pm Additional Instructions: May remove bandage and shower on 11/26/2018. Wash wounds gently and pat to dry. Apply dry gauze daily to wounds for 7 days. No tub baths or swimming until 12/26/2018. Call Dr. Heath [phone] with questions or concerns. - Diet and Activity Activity: increase activity as tolerated Diet: advance to your usual diet
[2018-11-25 07:05] VITALS: BP 106/38
[2018-11-25] MEDS: Insulin LISPRO 300 UNITS/3 ML VIAL SQ SCH (07:55)
[2018-11-25] MEDS: Ranolazine 500 MG TAB.ER.12H PO SCH (08:18)
[2018-11-25] MEDS ORDERED: FLU Vac QV 19-20 (6Month+)/PF 0.5 ML SYRINGE IM ONE (08:41)
[2018-11-25] MEDS ORDERED: Aspirin Enteric Coated 81 MG Tablet PO SCH (09:00)
[2018-11-25] MEDS ORDERED: Spironolactone 25 MG TABLET PO SCH (09:00)
[2018-11-25] MEDS ORDERED: amLODIPine 5 MG TABLET PO SCH (09:00)
== END 2018-11-25 09:30 | disposition home or self-care (01) | DRG 253 ==
LOC: SAMDAY 07:21 → 2NNU 14:12
PROVIDERS: ADMIT Surgery; ATTEND Surgery

== ENCOUNTER 2019-02-12 12:23 | Inpatient (IN) ==
[2019-02-12 13:09] LABS: Hematocrit 35.1 % (35.3-44.9); Mean Corpuscular HGB Conc 31.3 g/dL (31.6-35.5); Mean Corpuscular Hemoglobin 29.2 pg (28.0-33.3); Mean Corpuscular Volume 93.1 fL (83.0-100.0); Mean Platelet Volume 10.3 fL (9.4-12.4); Platelet Count 148 K/mcL (140-400); Red Blood Count 3.77 M/mcL (3.82-4.97); Red Cell Distribution Width 15.4 % (11.5-14.5); White Blood Count 5.6 K/mcL (4.3-11.1)
[2019-02-12 13:29] LABS: BUN/Creatinine Ratio 13 (6-26); Blood Urea Nitrogen 19 mg/dL (8-23); Calcium 9.2 mg/dL (8.6-10.3); Carbon Dioxide 32 mEq/L (23-29); Chloride 99 mEq/L (98-107); Glucose 211 mg/dL (70-105); Osmolality,Calculated 299 (280-300); Potassium 3.6 mEq/L (3.5-5.1); Sodium 140 mEq/L (136-145); eGFR For African Americans 41 (> 60); eGFR For Non-African Americans 34 (> 60)
[2019-02-12] MEDS ORDERED: ceFAZolin 2,000 MG in D5% in Water 100 ML IVPB ONE (15:53)
[2019-02-12] MEDS ORDERED: ceFAZolin 2,000 MG in Water for inj. (sterile) 20 ML IVP ONE (16:00)
[2019-02-12] MEDS ORDERED: Water for inj. (sterile) 10 ML ONE (16:16)
[2019-02-12] MEDS ORDERED: Ondansetron 4 MG/2 ML VIAL IVP PRN (16:18)
[2019-02-12] MEDS ORDERED: Naloxone 0.4 MG/ML INJ IVP PRN (16:18)
[2019-02-12 17:27] LABS: C-Reactive Protein 10 mg/L (Less than 10)
[2019-02-12 17:28] LABS: Troponin I < 0.03 ng/mL (< 0.04)
[2019-02-12] MEDS ORDERED: cefTRIAXone 1,000 MG in Water for inj. (sterile) 10 ML IVP SCH (21:00)
[2019-02-12] MEDS: *HR* Heparin 5,000 UNIT/ML VIAL SQ SCH (21:17)
[2019-02-12] MEDS ORDERED: *HR* Dextrose 50 % in Water (Syg) 50 ML SYRINGE IVP PRN (22:20)
[2019-02-12] MEDS ORDERED: Dextrose Gel 15 GM/37.5 ML TUBE PO PRN ×2 (22:20)
[2019-02-12] MEDS ORDERED: D5% in Water 1,000 ML IVC PRN (22:20)
[2019-02-12] MEDS: Insulin LISPRO 300 UNITS/3 ML VIAL SQ SCH (22:38)
[2019-02-13] MEDS ORDERED: *HR* Metoprolol 5 MG/5 ML VIAL IVP ONE (01:13)
[2019-02-13] MEDS ORDERED: cefTRIAXone 2,000 MG in Water for inj. (sterile) 20 ML IVP SCH (04:00)
[2019-02-13 04:31] LABS: Basophils % 0.4 %; Eosinophils # 0.2 K/mcL (0.0-0.6); Eosinophils % 3.7 %; Hematocrit 34.1 % (35.3-44.9); Hemoglobin 10.8 g/dL (11.5-15.4); Immature Granulocytes % 0.2 % (0-4); Lymphocytes # 1.4 K/mcL (0.6-4.6); Lymphocytes % 25.6 %; Mean Corpuscular HGB Conc 31.7 g/dL (31.6-35.5); Mean Corpuscular Hemoglobin 29.2 pg (28.0-33.3); Mean Corpuscular Volume 92.2 fL (83.0-100.0); Mean Platelet Volume 10.9 fL (9.4-12.4); Monocytes # 0.5 K/mcL (0.0-1.3); Monocytes % 9.4 %; Neutrophils # 3.4 K/mcL (1.6-8.9); Platelet Count 170 K/mcL (140-400); Red Cell Distribution Width 15.5 % (11.5-14.5); Segmented Neutrophils % 60.7 %; White Blood Count 5.6 K/mcL (4.3-11.1)
[2019-02-13 04:42] LABS: Calcium 9.2 mg/dL (8.6-10.3); Potassium 3.7 mEq/L (3.5-5.1)
[2019-02-13] MEDS: *HR* Heparin 5,000 UNIT/ML VIAL SQ SCH ×2 (05:05→17:13)
[2019-02-13] MEDS ORDERED: NITROGLYCERIN 4.1 GM TL PRN (07:55)
[2019-02-13] MEDS ORDERED: amLODIPine 5 MG TABLET PO SCH (09:00)
[2019-02-13] MEDS ORDERED: Nitroglycerin 0.4 MG TAB.SUBL SL PRN (09:10)
[2019-02-13] MEDS: Insulin LISPRO 300 UNITS/3 ML VIAL SQ SCH ×4 (09:21→20:55)
[2019-02-13] MEDS: Aspirin Enteric Coated 81 MG Tablet PO SCH (09:21)
[2019-02-13] MEDS: Ranolazine 500 MG TAB.ER.12H PO SCH ×2 (09:21→20:50)
[2019-02-13] MEDS: Spironolactone 25 MG TABLET PO SCH (09:22)
[2019-02-13] MEDS: carBAMazepine 200 MG TABLET PO SCH ×2 (09:22→20:49)
[2019-02-13] MEDS ORDERED: amLODIPine 5 MG TABLET PO ONE (13:34)
[2019-02-13] MEDS ORDERED: Isosorbide MONOnitrate (24 HR) 60 MG TAB.ER.24H PO SCH (18:00)
[2019-02-13] MEDS ORDERED: Piperacillin/Tazobactam 3.375 GM in 0.9 % Sodium Chloride Mini Bag 100 ML IVPB SCH (18:00)
[2019-02-13] MEDS ORDERED: traZODone 50 MG TABLET PO SCH (21:00)
[2019-02-13] MEDS: Piperacillin/Tazobactam 3.375 GM in 0.9 % Sodium Chloride Mini Bag 100 ML IVPB SCH (23:12)
[2019-02-14] MEDS: *HR* Heparin 5,000 UNIT/ML VIAL SQ SCH ×2 (04:45→16:19)
[2019-02-14 06:02] LABS: Basophils % 0.4 %; Eosinophils # 0.2 K/mcL (0.0-0.6); Eosinophils % 4.4 %; Hematocrit 32.3 % (35.3-44.9); Hemoglobin 10.2 g/dL (11.5-15.4); Immature Granulocytes % 0.2 % (0-4); Lymphocytes % 22.3 %; Mean Corpuscular HGB Conc 31.6 g/dL (31.6-35.5); Mean Corpuscular Hemoglobin 29.1 pg (28.0-33.3); Mean Platelet Volume 10.9 fL (9.4-12.4); Monocytes # 0.5 K/mcL (0.0-1.3); Monocytes % 10.7 %; Neutrophils # 2.8 K/mcL (1.6-8.9); Platelet Count 141 K/mcL (140-400); Red Blood Count 3.51 M/mcL (3.82-4.97); Red Cell Distribution Width 15.7 % (11.5-14.5); White Blood Count 4.6 K/mcL (4.3-11.1)
[2019-02-14 06:19] LABS: Calcium 8.9 mg/dL (8.6-10.3); Potassium 3.7 mEq/L (3.5-5.1)
[2019-02-14] MEDS: Spironolactone 25 MG TABLET PO SCH (08:50)
[2019-02-14] MEDS: Ranolazine 500 MG TAB.ER.12H PO SCH ×2 (08:50→21:02)
[2019-02-14] MEDS: carBAMazepine 200 MG TABLET PO SCH ×2 (08:50→21:02)
[2019-02-14] MEDS: Aspirin Enteric Coated 81 MG Tablet PO SCH (08:50)
[2019-02-14] MEDS: Piperacillin/Tazobactam 3.375 GM in 0.9 % Sodium Chloride Mini Bag 100 ML IVPB SCH ×3 (08:52→23:20)
[2019-02-14] MEDS: Insulin LISPRO 300 UNITS/3 ML VIAL SQ SCH ×4 (08:52→21:03)
[2019-02-14] MEDS ORDERED: amLODIPine 5 MG TABLET PO SCH (09:00)
[2019-02-14] MEDS ORDERED: Vancomycin 1,000 MG VIAL ONE ×2 (10:30→11:44)
[2019-02-14] MEDS ORDERED: *HR* Succinylcholine 200 MG/10 ML VIAL IVP ONE (10:33)
[2019-02-14] MEDS ORDERED: Ondansetron 4 MG/2 ML VIAL ONE (10:33)
[2019-02-14] MEDS ORDERED: Lidocaine -MPF 2% 2 ML VIAL ONE (10:33)
[2019-02-14] MEDS ORDERED: Dexamethasone 4 MG/ML VIAL ONE (10:33)
[2019-02-14] MEDS ORDERED: *HR* FentaNYL (PF) 100 MCG/2 ML VIAL ONE (10:34)
[2019-02-14] MEDS ORDERED: *HR* Propofol 200 MG/20 ML VIAL IVP ONE (10:34)
[2019-02-14] MEDS ORDERED: Lidocaine HCL 4 ML Topical Solution (Laryng-O-Jet Kit Sterile Pak) TP ONE (10:34)
[2019-02-14] MEDS ORDERED: EPHEDrine 50 MG/ML VIAL ONE (11:32)
[2019-02-14] MEDS ORDERED: *HR* PHENYLEPHRINE 1,000 MCG/10 ML SYRINGE IVP ONE (11:53)
[2019-02-14] MEDS ORDERED: D5% in Water 1,000 ML IVC PRN (13:30)
[2019-02-14] MEDS ORDERED: Ondansetron 4 MG/2 ML VIAL IVP PRN (13:30)
[2019-02-14] MEDS ORDERED: Dextrose Gel 15 GM/37.5 ML TUBE PO PRN ×2 (13:30)
[2019-02-14] MEDS ORDERED: Naloxone 0.4 MG/ML INJ IVP PRN (13:30)
[2019-02-14] MEDS ORDERED: Nitroglycerin 0.4 MG TAB.SUBL SL PRN (13:30)
[2019-02-14] MEDS ORDERED: *HR* Dextrose 50 % in Water (Syg) 50 ML SYRINGE IVP PRN (13:30)
[2019-02-14] MEDS: Isosorbide MONOnitrate (24 HR) 60 MG TAB.ER.24H PO SCH (16:19)
[2019-02-14] MEDS: traZODone 50 MG TABLET PO SCH (21:02)
[2019-02-15 04:59] LABS: Basophils % 0.2 %; Eosinophils % 0.5 %; Hematocrit 27.9 % (35.3-44.9); Immature Granulocytes % 0.2 % (0-4); Lymphocytes # 0.9 K/mcL (0.6-4.6); Lymphocytes % 19.7 %; Mean Corpuscular HGB Conc 30.8 g/dL (31.6-35.5); Mean Corpuscular Hemoglobin 29.2 pg (28.0-33.3); Mean Corpuscular Volume 94.6 fL (83.0-100.0); Mean Platelet Volume 11.2 fL (9.4-12.4); Monocytes # 0.5 K/mcL (0.0-1.3); Monocytes % 10.2 %; Neutrophils # 3.1 K/mcL (1.6-8.9); Platelet Count 136 K/mcL (140-400); Red Blood Count 2.95 M/mcL (3.82-4.97); Red Cell Distribution Width 15.5 % (11.5-14.5); Segmented Neutrophils % 69.2 %; White Blood Count 4.4 K/mcL (4.3-11.1)
[2019-02-15 05:00] LABS: Hemoglobin 8.6 g/dL (11.5-15.4)
[2019-02-15 05:18] LABS: Calcium 9.1 mg/dL (8.6-10.3)
[2019-02-15] MEDS: *HR* Heparin 5,000 UNIT/ML VIAL SQ SCH ×2 (05:24→16:34)
[2019-02-15] MEDS: Insulin LISPRO 300 UNITS/3 ML VIAL SQ SCH ×4 (07:59→20:13)
[2019-02-15] MEDS: carBAMazepine 200 MG TABLET PO SCH ×2 (08:00→20:12)
[2019-02-15] MEDS: Ranolazine 500 MG TAB.ER.12H PO SCH ×2 (08:00→20:12)
[2019-02-15] MEDS: Aspirin Enteric Coated 81 MG Tablet PO SCH (08:01)
[2019-02-15] MEDS: Piperacillin/Tazobactam 3.375 GM in 0.9 % Sodium Chloride Mini Bag 100 ML IVPB SCH ×2 (08:01→20:13)
[2019-02-15] MEDS: amLODIPine 5 MG TABLET PO SCH (08:01)
[2019-02-15 08:54] LABS: Hematocrit 31.4 % (35.3-44.9); Hemoglobin 9.8 g/dL (11.5-15.4)
[2019-02-15] MEDS ORDERED: Spironolactone 25 MG TABLET PO SCH (09:00)
[2019-02-15] MEDS: Insulin DETEMIR 100 UNIT/ML X5UNITS SQ SCH (12:17)
[2019-02-15] MEDS: Isosorbide MONOnitrate (24 HR) 60 MG TAB.ER.24H PO SCH (16:34)
[2019-02-15] MEDS: traZODone 50 MG TABLET PO SCH (20:12)
[2019-02-16] MEDS: *HR* Heparin 5,000 UNIT/ML VIAL SQ SCH (05:46)
[2019-02-16 06:27] LABS: Basophils % 0.2 %; Eosinophils # 0.3 K/mcL (0.0-0.6); Eosinophils % 7.8 %; Hematocrit 30.4 % (35.3-44.9); Hemoglobin 9.6 g/dL (11.5-15.4); Immature Granulocytes % 0.5 % (0-4); Lymphocytes # 1.3 K/mcL (0.6-4.6); Lymphocytes % 31.3 %; Mean Corpuscular HGB Conc 31.6 g/dL (31.6-35.5); Mean Corpuscular Hemoglobin 29.5 pg (28.0-33.3); Mean Corpuscular Volume 93.5 fL (83.0-100.0); Mean Platelet Volume 10.6 fL (9.4-12.4); Monocytes # 0.4 K/mcL (0.0-1.3); Monocytes % 9.2 %; Neutrophils # 2.1 K/mcL (1.6-8.9); Platelet Count 141 K/mcL (140-400); Red Blood Count 3.25 M/mcL (3.82-4.97); Red Cell Distribution Width 15.8 % (11.5-14.5); White Blood Count 4.1 K/mcL (4.3-11.1)
[2019-02-16 06:43] LABS: Calcium 9.1 mg/dL (8.6-10.3); Potassium 4.1 mEq/L (3.5-5.1)
[2019-02-16] MEDS: Piperacillin/Tazobactam 3.375 GM in 0.9 % Sodium Chloride Mini Bag 100 ML IVPB SCH (07:29)
[2019-02-16] MEDS: carBAMazepine 200 MG TABLET PO SCH (07:30)
[2019-02-16] MEDS: Aspirin Enteric Coated 81 MG Tablet PO SCH (07:30)
[2019-02-16] MEDS: amLODIPine 5 MG TABLET PO SCH (07:30)
[2019-02-16] MEDS: Ranolazine 500 MG TAB.ER.12H PO SCH (07:30)
[2019-02-16] MEDS: Insulin LISPRO 300 UNITS/3 ML VIAL SQ SCH ×2 (07:48→12:21)
[2019-02-16] MEDS: Insulin DETEMIR 100 UNIT/ML X5UNITS SQ SCH (07:48)
[2019-02-16] MEDS ORDERED: Vancomycin 500 MG in 0.9 % Sodium Chloride Mini Bag 100 ML IVPB ONE (10:00)
[2019-02-16 10:38] VITALS: BP 150/65
[2019-02-16] MEDS ORDERED: Doxycycline 100 MG CAPSULE PO SCH (14:00)
[2019-02-16] MEDS ORDERED: Aminoglycoside Consult 1 EACH MC ONE (16:30)
[2019-02-24] MEDS ORDERED: Cyanocobalamin (B-12) 1,000 MCG/ML VIAL SQ SCH ×2 (09:00)
== END 2019-02-16 16:31 | disposition home health service (06) | DRG 603 ==
LOC: EMEROOARM 12:23 → 3ANU 12:23 → SUATTDRO 02-13 15:04
PROVIDERS: ADMIT Internal Medicine; ATTEND Internal Medicine

== ENCOUNTER 2020-01-08 20:53 | Inpatient (IN) ==
[2020-01-08] MEDS ORDERED: Aspirin 325 MG TABLET PO ONE (21:11)
[2020-01-08] MEDS ORDERED: 0.9 % Sodium Chloride 1,000 ML ONE (21:15)
[2020-01-08] MEDS: Aspirin 81 MG TAB.CHEW ONE (21:19)
[2020-01-08] MEDS ORDERED: Nitroglycerin 1,000 MCG/10 ML VIAL IV ONE ×2 (21:29→21:39)
[2020-01-08] MEDS ORDERED: *HR* Heparin 10,000 UNIT/10 ML VIAL ONE (21:29)
[2020-01-08] MEDS ORDERED: Heparin 1,000 UNITS/500 mL 500 ML ONE (21:29)
[2020-01-08] MEDS ORDERED: ISOVUE-370 200 ML INFUS..BTL ONE (21:29)
[2020-01-08] MEDS ORDERED: 0.9 % Sodium Chloride 2,000 ML ONE (21:29)
[2020-01-08] MEDS ORDERED: 0.9 % Sodium Chloride 1,000 ML IVC ONE (21:37)
[2020-01-08] MEDS ORDERED: *HR* Ticagrelor 90 MG TABLET PO ONE (21:37)
[2020-01-08] MEDS ORDERED: *HR* Heparin 5,000 UNIT/ML VIAL IVP PRN ×2 (21:37)
[2020-01-08] MEDS ORDERED: *HR* Heparin 5,000 UNIT/ML VIAL IVP ONE (21:37)
[2020-01-08] MEDS ORDERED: Heparin 25,000UNIT/250ML 1/2NS 25,000 UNIT/250 ML IV.SOLN IVC SCH (21:45)
[2020-01-08 21:48] LABS: Basophils % 0.1 %; Eosinophils # 0.2 K/mcL (0.0-0.6); Eosinophils % 3.4 %; Hemoglobin 9.7 g/dL (11.5-15.4); Immature Granulocytes % 0.3 % (0-4); Lymphocytes # 1.4 K/mcL (0.6-4.6); Lymphocytes % 19.2 %; Mean Corpuscular HGB Conc 31.3 g/dL (31.6-35.5); Mean Corpuscular Hemoglobin 31.5 pg (28.0-33.3); Mean Corpuscular Volume 100.6 fL (83.0-100.0); Mean Platelet Volume 10.8 fL (9.4-12.4); Monocytes # 0.6 K/mcL (0.0-1.3); Monocytes % 8.8 %; Neutrophils # 4.8 K/mcL (1.6-8.9); Platelet Count 189 K/mcL (140-400); Red Blood Count 3.08 M/mcL (3.82-4.97); Red Cell Distribution Width 14.5 % (11.5-14.5); Segmented Neutrophils % 68.2 %
[2020-01-08 21:58] LABS: Calcium 9.3 mg/dL (8.6-10.3); Potassium 3.8 mEq/L (3.5-5.1)
[2020-01-08 21:59] LABS: Troponin I 0.03 ng/mL (< 0.04)
[2020-01-08] MEDS ORDERED: Ondansetron ODT 4 MG TAB.RAPDIS SL PRN (22:38)
[2020-01-08] MEDS ORDERED: Dextrose Gel 15 GM/37.5 ML TUBE PO PRN ×2 (22:43)
[2020-01-08] MEDS ORDERED: *HR* Dextrose 50 % in Water (Vial) 50 ML VIAL IVP PRN (22:43)
[2020-01-08] MEDS ORDERED: D5% in Water 1,000 ML IVC PRN (22:43)
[2020-01-08] MEDS ORDERED: *HR* HYDROmorphone (PF) 1 MG/ML SYRINGE IVP ONE (23:22)
[2020-01-09] MEDS: Insulin LISPRO 300 UNITS/3 ML VIAL SQ SCH ×4 (00:37→17:47)
[2020-01-09 01:33] LABS: Hematocrit 30.5 % (35.3-44.9); Hemoglobin 9.6 g/dL (11.5-15.4); Mean Corpuscular HGB Conc 31.5 g/dL (31.6-35.5); Mean Corpuscular Hemoglobin 31.7 pg (28.0-33.3); Mean Corpuscular Volume 100.7 fL (83.0-100.0); Mean Platelet Volume 10.7 fL (9.4-12.4); Platelet Count 201 K/mcL (140-400); Red Blood Count 3.03 M/mcL (3.82-4.97); Red Cell Distribution Width 14.6 % (11.5-14.5); White Blood Count 10.3 K/mcL (4.3-11.1)
[2020-01-09] MEDS ORDERED: *HR* HYDROmorphone (PF) 1 MG/ML SYRINGE IVP ONE (01:43)
[2020-01-09] MEDS ORDERED: Furosemide 100 MG in 0.9 % Sodium Chloride 50 ML IVPB ONE (01:45)
[2020-01-09 01:46] LABS: Calcium 9.1 mg/dL (8.6-10.3)
[2020-01-09] MEDS ORDERED: Aspirin 81 MG TAB.CHEW PO SCH (09:00)
[2020-01-09] MEDS ORDERED: Perflutren Lipid Microsphere 1.3 ML in 0.9 % Sodium Chloride 8.7 ML IVP PRN ×2 (11:14→17:05)
[2020-01-09] MEDS ORDERED: *HR* Acetylcysteine 20% 600 MG/3 ML ORAL SYRINGE PO SCH (11:45)
[2020-01-09] MEDS ORDERED: 0.9 % Sodium Chloride 1,000 ML ONE (13:25)
[2020-01-09] MEDS ORDERED: ISOVUE-370 200 ML INFUS..BTL ONE (13:25)
[2020-01-09] MEDS ORDERED: Heparin 1,000 UNITS/500 mL 0 ML ONE (13:25)
[2020-01-09] MEDS ORDERED: *HR* Heparin 10,000 UNIT/10 ML VIAL ONE (13:25)
[2020-01-09] MEDS ORDERED: Nitroglycerin 1,000 MCG/10 ML VIAL IV ONE (13:25)
[2020-01-09] MEDS ORDERED: *HR* Midazolam HCl 2 MG/2 ML VIAL ONE (14:40)
[2020-01-09] MEDS ORDERED: *HR* FentaNYL (PF) 100 MCG/2 ML VIAL ONE (14:40)
[2020-01-09] MEDS ORDERED: Furosemide 40 MG/4 ML VIAL ONE (15:40)
[2020-01-09] MEDS ORDERED: Furosemide 40 MG/4 ML VIAL IVP SCH (16:45)
[2020-01-09] MEDS ORDERED: D5% in Water 1,000 ML IVC PRN (17:05)
[2020-01-09] MEDS ORDERED: Dextrose Gel 15 GM/37.5 ML TUBE PO PRN ×2 (17:05)
[2020-01-09] MEDS ORDERED: *HR* Dextrose 50 % in Water (Vial) 50 ML VIAL IVP PRN (17:05)
[2020-01-09] MEDS ORDERED: Ondansetron ODT 4 MG TAB.RAPDIS SL PRN (17:05)
[2020-01-09 17:38] LABS: ABG Base Excess 2 mEq/L (-2 to 3); ABG HCO3 28 mEq/L (21-27); ABG Oxygen Saturation 88 % (95-98); ABG PCO2 48 mmHg (35-45); ABG PH 7.37 pH Units (7.32-7.45); ABG PO2 58 mmHg (85-104); ABG TCO2 29 mEq/L (20-26)
[2020-01-09] MEDS: Ipratropium/Albuterol Neb 3 ML IH SCH ×2 (19:21→20:05)
[2020-01-09 23:27] LABS: Calcium 9.2 mg/dL (8.6-10.3); Potassium 4.1 mEq/L (3.5-5.1)
[2020-01-10] MEDS ORDERED: Furosemide 40 MG/4 ML VIAL IVP ONE
[2020-01-10] MEDS: Ipratropium/Albuterol Neb 3 ML IH SCH ×7 (00:28→23:13)
[2020-01-10] MEDS: Insulin LISPRO 300 UNITS/3 ML VIAL SQ SCH ×4 (00:31→17:19)
[2020-01-10] MEDS: *HR* Acetylcysteine 20% 600 MG/3 ML ORAL SYRINGE PO SCH ×3 (01:00→20:32)
[2020-01-10 05:27] LABS: Basophils % 0.2 %; Eosinophils # 0.1 K/mcL (0.0-0.6); Eosinophils % 1.3 %; Hematocrit 30.3 % (35.3-44.9); Hemoglobin 9.7 g/dL (11.5-15.4); Immature Granulocytes % 0.6 % (0-4); Lymphocytes # 1.2 K/mcL (0.6-4.6); Lymphocytes % 13.8 %; Mean Corpuscular Hemoglobin 32.4 pg (28.0-33.3); Mean Corpuscular Volume 101.3 fL (83.0-100.0); Mean Platelet Volume 10.3 fL (9.4-12.4); Monocytes # 0.9 K/mcL (0.0-1.3); Monocytes % 10.3 %; Neutrophils # 6.4 K/mcL (1.6-8.9); Nucleated Red Blood Cells 0.2 /100 WBC (0); Platelet Count 166 K/mcL (140-400); Red Blood Count 2.99 M/mcL (3.82-4.97); Red Cell Distribution Width 14.7 % (11.5-14.5); Segmented Neutrophils % 73.8 %; White Blood Count 8.6 K/mcL (4.3-11.1)
[2020-01-10 06:09] LABS: % Iron Saturation 18 % (15-50); Calcium 9.5 mg/dL (8.6-10.3); Iron 67 mcg/dL (50-170); Magnesium 1.9 mg/dL (1.6-2.6); Potassium 3.9 mEq/L (3.5-5.1); Transferrin 273 mg/dL (203-362)
[2020-01-10] MEDS: Aspirin 81 MG TAB.CHEW PO SCH (07:44)
[2020-01-10] MEDS: Furosemide 40 MG/4 ML VIAL IVP SCH ×2 (07:44→20:30)
[2020-01-10] MEDS ORDERED: Furosemide 40 MG/4 ML VIAL IVP SCH (09:00)
[2020-01-10] MEDS ORDERED: Isosorbide MONOnitrate (24 HR) 30 MG TAB.ER.24H PO SCH (09:00)
[2020-01-10] MEDS: Metoprolol XL (24 HR) Succ 50 MG TAB.ER.24H PO SCH (09:59)
[2020-01-10 15:55] LABS: Bilirubin,Urine Negative (Negative); Blood,Urine Small (Negative); Clarity,Urine Clear (Clear); Color,Urine Yellow (Yellow); Glucose,Urine (UA) Normal (Normal); Granular Casts,Urine Few per lpf (None Seen); Hyaline Casts,Urine Moderate per lpf (None Seen); Ketones,Urine Negative (Negative); Leukocyte Esterase,Urine Small (Negative); Mucus,Urine Few per lpf (None-Few); Nitrite,Urine Negative (Negative); PH,Urine 5.5 pH Units (5.0-8.0); Protein,Urine 30 mg/dL (Neg-Trace); Specific Gravity,Urine 1.024 (1.010-1.025); Squamous Epithelial Cell,Urine Few per hpf (None-Few); Urobilinogen,Urine Normal (Normal); WBC,Urine 15-30 per hpf (0-3)
[2020-01-10] MEDS: *HR* Heparin 5,000 UNIT/ML VIAL SQ SCH (17:18)
[2020-01-10] MEDS: Isosorbide MONOnitrate (24 HR) 60 MG TAB.ER.24H PO SCH (17:19)
[2020-01-10] MEDS: traZODone 50 MG TABLET PO SCH (20:30)
[2020-01-10] MEDS: carBAMazepine 200 MG TABLET PO SCH (20:30)
[2020-01-10] MEDS: Ranolazine 500 MG TAB.ER.12H PO SCH (20:30)
[2020-01-11 01:50] LABS: Hematocrit 25.3 % (35.3-44.9); Hemoglobin 8.1 g/dL (11.5-15.4); Mean Corpuscular Hemoglobin 32.8 pg (28.0-33.3); Mean Corpuscular Volume 102.4 fL (83.0-100.0); Mean Platelet Volume 10.8 fL (9.4-12.4); Platelet Count 143 K/mcL (140-400); Red Blood Count 2.47 M/mcL (3.82-4.97); Red Cell Distribution Width 14.6 % (11.5-14.5); White Blood Count 7.1 K/mcL (4.3-11.1)
[2020-01-11 02:08] LABS: Calcium 8.6 mg/dL (8.6-10.3); Magnesium 1.8 mg/dL (1.6-2.6); Potassium 3.8 mEq/L (3.5-5.1)
[2020-01-11] MEDS: Ipratropium/Albuterol Neb 3 ML IH SCH ×6 (05:13→23:56)
[2020-01-11] MEDS: *HR* Heparin 5,000 UNIT/ML VIAL SQ SCH ×2 (05:46→16:22)
[2020-01-11] MEDS: Metoprolol XL (24 HR) Succ 50 MG TAB.ER.24H PO SCH (09:22)
[2020-01-11] MEDS: allopurinoL 300 MG TABLET PO SCH (09:23)
[2020-01-11] MEDS: Aspirin 81 MG TAB.CHEW PO SCH (09:23)
[2020-01-11] MEDS: Ranolazine 500 MG TAB.ER.12H PO SCH ×2 (09:23→20:08)
[2020-01-11] MEDS: Insulin LISPRO 300 UNITS/3 ML VIAL SQ SCH ×3 (09:23→16:23)
[2020-01-11] MEDS: Furosemide 40 MG/4 ML VIAL IVP SCH (09:24)
[2020-01-11] MEDS: Pantoprazole 40 MG VIAL IVP SCH ×2 (11:37→16:22)
[2020-01-11 14:30] LABS: Hematocrit 26.9 % (35.3-44.9); Hemoglobin 8.4 g/dL (11.5-15.4)
[2020-01-11] MEDS: Isosorbide MONOnitrate (24 HR) 60 MG TAB.ER.24H PO SCH (16:22)
[2020-01-11] MEDS: traZODone 50 MG TABLET PO SCH (20:08)
[2020-01-11] MEDS: carBAMazepine 200 MG TABLET PO SCH (20:08)
[2020-01-11] MEDS ORDERED: Insulin DETEMIR 100 UNIT/ML X5UNITS SQ ONE (21:00)
[2020-01-12] MEDS: Ipratropium/Albuterol Neb 3 ML IH SCH ×3 (03:50→11:44)
[2020-01-12] MEDS: *HR* Heparin 5,000 UNIT/ML VIAL SQ SCH (05:13)
[2020-01-12] MEDS: Pantoprazole 40 MG VIAL IVP SCH (05:13)
[2020-01-12 06:09] LABS: Basophils % 0.3 %; Eosinophils # 0.3 K/mcL (0.0-0.6); Eosinophils % 4.8 %; Hematocrit 25.2 % (35.3-44.9); Hemoglobin 7.8 g/dL (11.5-15.4); Immature Granulocytes % 0.3 % (0-4); Lymphocytes # 1.2 K/mcL (0.6-4.6); Mean Corpuscular Hemoglobin 31.2 pg (28.0-33.3); Mean Corpuscular Volume 100.8 fL (83.0-100.0); Mean Platelet Volume 10.9 fL (9.4-12.4); Monocytes # 0.7 K/mcL (0.0-1.3); Monocytes % 10.1 %; Neutrophils # 4.3 K/mcL (1.6-8.9); Platelet Count 150 K/mcL (140-400); Red Cell Distribution Width 14.6 % (11.5-14.5); Segmented Neutrophils % 65.5 %; White Blood Count 6.5 K/mcL (4.3-11.1)
[2020-01-12 06:29] LABS: Calcium 8.8 mg/dL (8.6-10.3); Magnesium 1.9 mg/dL (1.6-2.6); Potassium 4.1 mEq/L (3.5-5.1)
[2020-01-12] MEDS: Metoprolol XL (24 HR) Succ 50 MG TAB.ER.24H PO SCH (07:51)
[2020-01-12] MEDS: Ranolazine 500 MG TAB.ER.12H PO SCH (07:51)
[2020-01-12] MEDS: Aspirin 81 MG TAB.CHEW PO SCH (07:51)
[2020-01-12] MEDS: Furosemide 40 MG/4 ML VIAL IVP SCH (07:51)
[2020-01-12] MEDS: allopurinoL 300 MG TABLET PO SCH (07:51)
[2020-01-12] MEDS: Insulin LISPRO 300 UNITS/3 ML VIAL SQ SCH ×2 (07:52→12:55)
[2020-01-12 11:22] VITALS: BP 130/63
== END 2020-01-12 14:34 | disposition home health service (06) | DRG 280 ==
LOC: EMEROOARM 20:53 → 2ANU 20:53 → SUATTDRO 23:00 → 2ANU 23:20
PROVIDERS: ADMIT Internal Medicine; ATTEND Internal Medicine